=== PATIENT | female | born 1945 | race Caucasian/White ===

== ENCOUNTER → 2019-04-11 | Outpatient (REF) | payer MEDICARE | LOC: M LAB LCGH 15:13 | PROVIDERS: ATTEND Surgery | DX: Z86.010 Personal history of colon polyps (principal) ==

== ENCOUNTER → 2019-11-09 | Outpatient (REF) | payer MEDICARE ==
[2019-11-09 17:40] LABS: IRON (FE) 157 UG/DL (50-170); PERCENT SATURATION 45.2 % (13.2-45.0); TOTAL IRON BINDING CAPACITY 347 UG/DL (250-450)
[2019-11-09 17:53] LABS: FOLATE > 24.0 NG/ML; VITAMIN B12 LEVEL 897 PG/ML
== END ==
LOC: M LAB REF 16:43
PROVIDERS: ATTEND Internal Medicine
DX: Z98.84 Bariatric surgery status (principal)

== ENCOUNTER → 2021-09-12 | Outpatient (REF) | payer MEDICARE ==
[2021-09-12 16:46] LABS: INR 0.94
[2021-09-12 16:51] LABS: APPEARANCE, URINE CLEAR (CLEAR); BACTERIA, URINE AUTO 1+ (NEGATIVE); BILIRUBIN, URINE AUTO NEGATIVE (NEGATIVE); BLOOD, URINE BLOOD 1+ (NEGATIVE); COLOR, URINE YELLOW (YELLOW); GLUCOSE, URINE (UA) AUTO NEGATIVE (NEGATIVE); KETONE, URINE AUTO NEGATIVE (NEGATIVE); LEUKOCYTE ESTERASE, URINE AUTO NEGATIVE (NEGATIVE); NITRITE, URINE AUTO NEGATIVE (NEGATIVE); PROTEIN, URINE AUTO NEGATIVE (NEGATIVE); RBC, URINE AUTO 1 /HPF (0-3); SPECIFIC GRAVITY URINE AUTO 1.009 (1.002-1.035); SQUAMOUS EPITHELIAL CELL UR AU 0 /HPF (0-6); UROBILINOGEN, URINE AUTO 0.2 mg/dL (0.0-2.0); WBC, URINE AUTO 1 /HPF (0-3)
[2021-09-12 17:33] LABS: PERCENT SATURATION 29.3 % (13.2-45.0)
== END ==
LOC: M LAB REF 16:10
PROVIDERS: ATTEND Internal Medicine
DX: Z01.818 Encounter for other preprocedural examination (principal)

== ENCOUNTER → 2022-01-13 | Outpatient (CLI) | payer MEDICARE | LOC: M RAD 11:47 | PROVIDERS: ATTEND Internal Medicine | DX: R09.89 Other specified symptoms and signs involving the circulatory and respiratory systems (principal) ==

== ENCOUNTER → 2022-09-05 | Outpatient (REF) | payer MEDICARE ==
[2022-09-05 12:32] LABS: FOLATE > 24.0 NG/ML (>5.4); VITAMIN B12 LEVEL 791 PG/ML (211-911)
== END ==
LOC: M LAB REF 11:42
PROVIDERS: ATTEND Internal Medicine
DX: Z98.84 Bariatric surgery status (principal)

== ENCOUNTER → 2023-09-09 | Outpatient (REF) | payer MEDICARE ==
[2023-09-09 17:57] LABS: FOLATE > 24.0 NG/ML (>5.4); IRON (FE) 59 UG/DL (50-170); PERCENT SATURATION 16.8 % (13.2-45.0); TOTAL IRON BINDING CAPACITY 352 UG/DL (250-425)
[2023-09-09 19:30] LABS: VITAMIN B12 LEVEL 803 PG/ML (211-911)
== END ==
LOC: M LAB REF 16:52
PROVIDERS: ATTEND Internal Medicine
DX: Z98.84 Bariatric surgery status (principal); D50.9 Iron deficiency anemia, unspecified

== ENCOUNTER → 2024-04-13 | Outpatient (REF) | payer MEDICARE | LOC: M LAB REF 16:21 | PROVIDERS: ATTEND Podiatrist | DX: L03.031 Cellulitis of right toe (principal) ==

== ENCOUNTER → 2025-07-11 | Outpatient (CLI) | payer MEDICARE ==
[~2025-07-11] MED LIST: METHACHOLINE KIT (6 VIAL.NEB PREMIX) INH ONE
== END ==
LOC: M CARPUL 09:30
PROVIDERS: ATTEND Internal Medicine Pulmonary Disease
DX: R06.02 Shortness of breath (principal)
CPT/HCPCS: 88738; 94010; 94070; 94726; 94729; 95070; J7674